=== PATIENT | female | born 1965 | race Caucasian/White ===

== ENCOUNTER 2021-02-14 18:51 | Emergency (ER) | payer OTHER ==
[~2021-02-14] VITALS: Ht 157.5 cm; Wt 54.5 kg
--- NOTE | 2021-02-14 18:57 | PHYS DOC ---
Past History Past Medical History: Bronchitis, Hypertension Smoking: Cigarettes General Adult HPI: HPI: ".. I was at work.. and started getting chest pain.. and shortness of breath.. It is here on the Lt... it been constant.. it worse with deep breath.... Patient is a 55 year old female who presents with above hx and complaints left sided chest pain since this afternoon. Patient's pain is been persistent. Patient currently rates her pain 7 out of 10. Pain is worse with deep breaths. Patient has had some intermittent coughing the past 2 weeks. No history of trauma. Patient does smoke. No recent travel. No severe ill contacts. Patient normally follows with Dr. Amanda for healthcare. Review of Systems: Review of Systems: Constitutional: Denies fever or chills Eyes: Denies change in visual acuity HENT: Denies nasal congestion or sore throat Respiratory: Hx of cough and shortness of breath Cardiovascular: Complains of chest pain and shortness of breath GI: Denies abdominal pain, nausea, vomiting, bloody stools or diarrhea : Denies dysuria Musculoskeletal: Denies back pain or joint pain Integument: Denies rash Neurologic: Denies headache, focal weakness or sensory changes Endocrine: Denies polyuria or polydipsia Lymphatic: Denies swollen glands Psychiatric: Denies depression or anxiety Family History: Family History: Noncontributory to presentation Current Medications: Current Meds: See nursing for home meds Allergies: Allergies: Allergic to codeine Physical Exam: PE: Constitutional: Moderate acute distress, non-toxic appearance. [] HENT: Normocephalic, atraumatic, bilateral external ears normal, oropharynx moist, no oral exudates, nose normal. [] Eyes: PERRLA, EOMI, conjunctiva normal, no discharge. [] Neck: Normal range of motion, no tenderness, supple, no stridor. [] Trachea midline Cardiovascular: Tachycardia heart rate regular rhythm, no murmur [] Lungs & Thorax: Bilateral breath sounds more prevalent on right. Decreased on left with auscultation []. Does have wheezes Abdomen: Bowel sounds normal, soft, no tenderness, no masses, no pulsatile masses. [] Skin: Warm, dry, no erythema, no rash. [] Back: No tenderness, no CVA tenderness. [] Extremities: No tenderness, no cyanosis, no clubbing, ROM intact, no edema. [] No cording appreciated Neurologic: Alert and oriented X 3, normal motor function, normal sensory function, no focal deficits noted. []No cording appreciated. Psychologic: Affect normal, judgement normal, mood normal. [] EKG: EKG: My interpretation EKG shows a sinus tachycardia 160 beats per minutes. Does have some by metal P waves. But no findings acute STEMI of contralateral changes. [] Radiology/Procedures: Radiology/Procedures: [][address] [address] IMAGING REPORT Signed PATIENT: QUIN LOPEZ ACCOUNT: [id number] : 1965 LOCATION: ER AGE: 55 SEX: F EXAM STATUS: REG ER ORD. PHYSICIAN: SANDRA HEWITT MD REASON: Chest pain PROCEDURE: PORTABLE CHEST 1V AP chest. HISTORY: Chest pain AP view was taken of the chest. There is a large left pneumothorax. There is mild shift of the midline to the right. There is no effusion. Right lung is clear. IMPRESSION: 1. Large left pneumothorax. FOR INTERNAL CODING PURPOSES Critical result: Findings discussed with ER physician at 02/14/2021 7:25 PM. RESULT CODE: (C) Electronically signed by: Butch Oleary MD (02/14/2021 7:27 PM) [facility] DICTATED AND SIGNED BY: BUTCH OLEARY MD DATE: 02/14/211922 CC: ROSALIND AMANDA MD; SANDRA HEWITT MD ~MTH0 0 Heart Score: C/O Chest Pain: Yes HEART Score for Chest Pain: HEART Score for Chest Pain Response (Comments) Value History Slighlty/Non-Suspicious 0 ECG Normal 0 Age >45 - < 65 1 Risk Factors 1 or 2 Risk Factors 1 Troponin < Normal Limit 0 Total 2 Risk Factors: Risk Factors: DM, Current or recent (<one month) smoker, HTN, HLP, family history of CAD, obesity. Risk Scores: Score 0 - 3: 2.5% MACE over next 6 weeks - Discharge Home Score 4 - 6: 20.3% MACE over next 6 weeks - Admit for Clinical Observation Score 7 - 10: 72.7% MACE over next 6 weeks - Early Invasive Strategies Course & Med Decision Making: Course & Med Decision Making Pertinent Labs and Imaging studies reviewed. (See chart for details) Note there may be duplication due to computer malfunction. Procedure Note- Chest Tube placement- Discussed risk and benefits of chest tube placement. Patient agreeable to procedure. Left midclavicular line prepped with Betadine. Patient received injection of lidocaine and Sensorcaine at third intercostal place up to the second intercostal space. 1 stick of the catheter tube was passed into the chest wall with minimal discomfort. Sutured in place with a Biopatch. Had immediate bubbling of Pleur-evac. Repeat chest x-ray shows re expansion of lung in adequate position of Cook catheter. Cook catheter sutured in place. Patien t remain on 2 L oxygen. Discussed presentation, history, testing and treatment plan with Dr. Dash. Patient transferred to [facility] for possible pulmonary consult and CT chest. Patient urged to stop smoking. Impression: 1. Chest pain 2. Large pneumothorax left 3. Tobacco use 4. Mild Leukocytosis 11.7 [] Dragon Disclaimer: Dragon Disclaimer: This electronic medical record was generated, in whole or in part, using a voice recognition dictation system. Departure Departure: Referrals: ROSALIND AMANDA MD (PCP) [place] Disclaimer This chart was dictated in whole or in part using Voice Recognition software in a busy, high-work load, and often noisy Emergency Department environment. It may contain unintended and wholly unrecognized errors or omissions. SANDRA HEWITT MD Feb 14, 2021 18:57
[2021-02-14] MEDS ORDERED: IV RINGERS SOLUTION,LACTATED 1,000 ML IV SCH (19:15)
--- NOTE | 2021-02-14 19:29 | RAD ---
AP chest. HISTORY: Chest pain AP view was taken of the chest. There is a large left pneumothorax. There is mild shift of the midlin e to the right. There is no effusion. Right lung is clear. IMPRESSION: 1. Large left pneumothorax. FOR INTERNAL CODING PURPOSES Critical result: Findings discussed with ER physician at 02/14/2021 7:25 PM. RESULT CODE: (C) Electronically signed by: Butch Oleary MD (02/14/2021 7:27 PM) [facility]
[2021-02-14 19:30] LABS: BASO # 0.1 x10^3/uL (0.0-0.2); BASO % 1 % (0-3); EOS # 0.6 x10^3/uL (0.0-0.7); EOS % 5 % (0-3); HEMATOCRIT 37.1 % (36.0-47.0); HEMOGLOBIN 12.3 g/dL (12.0-15.5); LYMPH # 1.8 x10^3/uL (1.0-4.8); LYMPH % 15 % (24-48); MEAN CORPUSCULAR HEMOGLOBIN 29 pg (25-35); MEAN CORPUSCULAR HGB CONC 33 g/dL (31-37); MEAN CORPUSCULAR VOLUME 88 fL (79-100); MONO # 0.9 x10^3/uL (0.0-1.1); MONO % 8 % (0-9); NEUT # 8.4 x10^3uL (1.8-7.7); NEUT % 72 % (31-73); PLATELET COUNT 379 x10^3/uL (140-400); RED BLOOD COUNT 4.21 x10^6/uL (3.50-5.40); RED CELL DISTRIBUTION WIDTH 12.8 % (11.5-14.5); WHITE BLOOD COUNT 11.7 x10^3/uL (4.0-11.0)
--- NOTE | 2021-02-14 19:36 | EKG ---
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
[2021-02-14] MEDS ORDERED: LIDOCAINE 2% 20 ML VIAL. ONE (19:42)
[2021-02-14] MEDS ORDERED: BUPIVACAINE MPF 0.25% 10 ML VIAL. ONE (19:42)
[2021-02-14 19:47] LABS: CALCIUM 9.3 mg/dL (8.5-10.1); CREATININE 0.8 mg/dL (0.6-1.0); GFR 74.7
[2021-02-14 19:51] LABS: ALBUMIN 4.1 g/dL (3.4-5.0); DIRECT BILIRUBIN 0.1 mg/dL (0.0-0.2); MAGNESIUM 1.9 mg/dL (1.8-2.4); TOTAL BILIRUBIN 0.6 mg/dL (0.2-1.0); TOTAL PROTEIN 7.8 g/dL (6.4-8.2)
--- NOTE | 2021-02-14 20:49 | RAD ---
AP chest. HISTORY: Pneumothorax, chest tube AP view was taken of the chest. There is a small left chest tube which extends to the apex. Pneumotho rax has resolved. There is mild linear atelectasis without other infiltrates. There are bullous ortega es in the right apex. IMPRESSION: 1. Left chest tube. 2. Improved left pneumothorax. Electronically signed by: Butch Oleary MD (02/14/2021 8:46 PM) [facility]
[2021-02-14] MEDS ORDERED: LIDOCAINE 2% 20 ML VIAL. IJ ONE (21:30)
[2021-02-14] MEDS ORDERED: BUPIVACAINE MPF 0.25% 10 ML VIAL. IJ ONE (21:30)
[2021-02-14 22:26] VITALS: BP 113/78
[2021-02-15 13:50] LABS: THYROID STIM HORMONE (TSH) 2.167 uIU/mL (0.358-3.740)
== END 2021-02-14 22:34 | disposition short-term general hospital (02) ==
LOC: ER 18:51
DX: J93.9 Pneumothorax, unspecified (principal); R07.89 Other chest pain; D72.829 Elevated white blood cell count, unspecified; I10 Essential (primary) hypertension; F17.210 Nicotine dependence, cigarettes, uncomplicated; Z88.5 Allergy status to narcotic agent
CPT/HCPCS: 32551; 36415; 71045; 80048; 80061; 80076; 82550; 83690; 83735; 84443; 84484; 85025; 85379; 85610; 85730; 93005; 96361; 96374; 99285; J2001; J3010; J3490; J7120